=== PATIENT | male | born 1995 | race Caucasian/White ===

== ENCOUNTER 2021-01-31 21:25 | Emergency (ER) | payer OTHER, SELFPAY ==
[2021-01-31 21:27] VITALS: BP 135/79; PULSE 85; RESP 16; TEMP 36.6; O2SAT 97; BMI 29.9
--- NOTE | 2021-01-31 21:52 | XR_ITS ---
PROCEDURE INFORMATION: Exam: XR Left Hand Exam date and time: 01/31/2021 9:52 PM Age: 25 years old Clinical indication: Injury or trauma; Other: Nail gun injury; Puncture; Ring finger; Patient HX: Nail from nail gun went thru distal part of 4th finger on left hand; Additional info: Nail went through finger TECHNIQUE: Imaging protocol: XR Left hand. Views: 3 or more views. COMPARISON: No relevant prior studies available. FINDINGS: Bones/joints: Small bone fragments are seen dorsal to the distal phalanx of the 4th digit. Nondisplaced fracture noted as well. Soft tissues: Soft tissue swelling noted in the 4th digit. IMPRESSION: Minimally displaced and comminuted fracture of the distal phalanx of the 4th digit
--- NOTE | 2021-01-31 22:36 | HMH.EDUPEXT ---
ED Disposition Clinical Impression: Puncture wound Finger fracture, left Qualifiers: Encounter type: initial encounter Finger: ring finger Fracture type: closed Phalanx: distal Fracture alignment: nondisplaced Qualified Code(s): S62.665A - Nondisplaced fracture of distal phalanx of left ring finger, initial encounter for closed fracture Disposition: Home, Self-Care Condition on Discharge: Good Instructions: DI for Wound Infection Additional Instructions: call ortho in am Prescriptions: cephALEXin [cephALEXin 500mg capsule*] 500 mg PO TID #30 cap Transmission Status: Pending to [id number] clindamycin HCL [Clindamycin HCl] 300 mg PO TID #30 cap Transmission Status: Pending to [facility] Referrals: ProviderJas MD [Primary Care Provider] - Zachary Borrego MD [Staff Physician] - - Critical Care Critical Care Time: No Attestation: On 01/31/21, the high probability of a clinically significant, sudden or life threatening deterioration of the following system(s) required my full and direct attention, intervention and personal management. The time I documented below is in addition to time spent performing reported procedures but includes the following listed in this critical care notation. Medical Decision Making - Medical Records Medical records reviewed: Yes: I reviewed the patient's medical records. - Mukund Inquiry Pt receiving controlled substance: No Vital Signs: 01/31/21 21:27 Temperature 97.9 F Temperature Source Oral Pulse Rate [Right Radial] 85 Respiratory Rate 16 Blood Pressure [Right Arm] 135/79 Blood Pressure Mean [Right Arm] 97 Blood Pressure Source [Right Arm] Automatic Cuff Blood Pressure Position [Right Arm] Sitting 02 Sat by Pulse Oximetry 97 Oxygen Delivery Method Room Air Orders (Tests/Meds): ED MEDICATIONS Discontinued Medications Generic Name Dose Route Start Last Admin Trade Name Freq PRN Reason Stop Dose Admin Tetanus/Diphtheria Toxoids 0.5 ml 01/31/21 21:52 01/31/21 22:18 Tetanus-Diphth Toxoid, Adult 0.5ml Syr IM 01/31/21 21:53 0.5 ml .ONCE ONE Administration - Radiology Data #1 Image(s): Hand Image Reviewed: Yes I have reviewed radiologist's interpretation Preliminary Findings: Abnormal (see report ) - Physician Consults Physician Consulted: charity Reason -: Pt condition Medical Decision Narrative: workman comp injury with nail gun injury at distal lt 4th finger - sl flexion deformity- has fx - will see ortho for follow up - workman comp form completed Upper Extremity HPI - General Chief Complaint: Wound/Laceration Stated Complaint: AO nailgun shot nail into left ring finger Time Seen by Provider: 01/31/21 22:37 Mode of Arrival: Ambulatory Source of Information: Patient, Medical Record Limitations: No Limitations Description of Symptoms (Recalled from ER Triage Doc. by RN): Pt reports shooting a nail through his finger with a nail gun at work arround 11am. Pt is not UTD on tetnus. Injury is to left ring finger. - History of Present Illness HPI narrative: nail gun injury to lt 4th/ring finger today at work about noon- now swelling and pain complaint: injury to: left, finger Onset (ago): hour(s) Other Extremity Injury: Left: fingers Other injuries: none Handedness: right Place: work Severity: moderate Context: other (nail gun injury) Associated symptoms: denies other symptoms - Related Data Previous Rx's Medication Instructions Recorded cephALEXin [cephALEXin 500mg 500 mg PO TID #30 cap 01/31/21 capsule*] clindamycin HCL [Clindamycin HCl] 300 mg PO TID #30 cap 01/31/21 Allergies Allergy/AdvReac Type Severity Reaction Status Date / Time amoxicillin Allergy Verified 01/31/21 21:51 [facility] History - Hepatitis A Screen Drug use history?: No High risk sexual behaviors?: No History of sexually transmitted infection?: No Currently employed?: No Childcare worker?: No Do you h
[2021-01-31 23:34] VITALS: BP 125/78; PULSE 80; RESP 16; TEMP 36.8; O2SAT 98
== END 2021-01-31 23:35 | disposition home or self-care (01) ==
PROVIDERS: Emergency Provider Emergency Medicine
DX: S62.665A Nondisplaced fracture of distal phalanx of left ring finger, initial encounter for closed fracture (principal); S61.235A Puncture wound without foreign body of left ring finger without damage to nail, initial encounter; W22.8XXA Striking against or struck by other objects, initial encounter; Y92.69 Other specified industrial and construction area as the place of occurrence of the external cause; Y99.0 Civilian activity done for income or pay; Z23 Encounter for immunization
CPT/HCPCS: 73130; 90471; 90714; 96372; 99282

== ENCOUNTER 2022-06-09 17:50 | Emergency (ER) | payer OTHER, SELFPAY ==
[2022-06-09 17:50] VITALS: BP 131/80; PULSE 83; RESP 18; TEMP 36.6; O2SAT 93; BMI 32.5
[2022-06-09 18:08] VITALS: BMI 32.5
--- NOTE | 2022-06-09 18:14 | HMH.EDNVD ---
Discharge Plan Disposition Patient Disposition: Home, Self-Care Condition: Fair Prescriptions Prescriptions: New ondansetron 8 mg Tablet,Disintegrating 8 mg PO QID PRN (Reason: Nausea And Vomiting) Qty: 16 0RF No Action cephalexin 500 MG capsule 500 mg PO TID Qty: 30 0RF clindamycin HCl 300 MG capsule 300 mg PO TID Qty: 30 0RF Referrals Follow up/Referrals: Provider,Referral, [Primary Care Provider] - See instructions Activity Restrictions/Add. Instructions Additional Instructions/Restrictions: Take only clear liquids by mouth for the next day or 2. After that you may start slowly increasing/advancing your diet. Follow-up with your primary care doctor in about 2 to 3 days if you do not feel any better. Return to the emergency department immediately if you feel worse in any way. Clinical Impressions Clinical Impression: Vomiting Qualifiers: Vomiting type: unspecified Nausea presence: with nausea Qualified Code(s): R11.2 - Nausea with vomiting, unspecified Instructions Patient Instructions: Nausea and Vomiting-Adult Discharge ED Provider: Shadia Goldman Nausea/Vomiting/Diarrhea [facility] General Chief complaint: Nausea/Vomiting/Diarrhea Stated complaint: vomiting Time Seen by Provider: 06/09/22 18:14 Mode of Arrival: Ambulatory Source of Information: Patient Limitations: No Limitations Description of Symptoms (Recalled from ER Triage Doc. by RN): Patient ambulated into the ED with complaints of vomiting that has persisted for the past 4 days. Patieent states he has not had any episodes of diarrhea and no fever during this 4 day time periods. Patient also has a cough that just started today. Patient also states he has not been able to eat anything during this 4 day period. History of Present Illness HPI Narrative: The patient presents to the emergency department complaining of vomiting for the last 4 days. He states that a few days ago his son was sick with the same symptoms. His son has recovered now. He denies any diarrhea. He denies any abdominal pain. He does take Suboxone. He stopped smoking marijuana several days ago. He denies any other drug use. He denies any hematemesis. MD complaint: nausea and vomiting Associated Abdominal Pain: No Related Data Previous Rx's Medication Instructions Recorded cephalexin 500 mg capsule 500 mg PO TID #30 caps 01/31/21 clindamycin HCl 300 mg capsule 300 mg PO TID #30 caps 01/31/21 ondansetron 8 mg disintegrating 8 mg PO QID PRN Nausea And 06/09/22 tablet Vomiting #16 tabs Allergies Allergy/AdvReac Type Severity Reaction Status Date / Time amoxicillin Allergy Verified 01/31/21 21:51 [facility] Disclaimer: The information contained in this section may have been updated after the patient was seen, as this information can be updated by other users. Social History Smoking Status: Current every day smoker alcohol intake: current current occupational status: employed Travel in the last 8 weeks: None ROS Obtained: Yes All systems reviewed & no additional complaints except as documented Physical Exam General General appearance: alert Head Head exam: atraumatic Eye Eye exam: Present normal appearance and EOMI; Absent scleral icterus or jaundice ENT ENT exam: Present normal exam Neck Neck exam: Present normal inspection and full ROM; Absent tenderness or meningismus Chest Chest inspection: Present normal inspection and symmetric chest wall rise; Absent tenderness Respiratory Respiratory exam: Present normal lung sounds bilaterally; Absent respiratory distress or accessory muscle use Cardiovascular Cardiovascular exam: Present regular rate, normal rhythm and normal heart sounds Abdominal Exam Abdominal exam: Present soft and normal bowel sounds; Absent distention, tenderness, heel tap sign, Higgins's sign, Rovsing's sign, tenderness at McBurney's Point or mass Extremities Exam Extremities exam: Present normal inspection and ful
[2022-06-09 18:20] LABS: Chloride 98 mmol/L (98-107); Potassium 3.7 mmoL/L (3.5-5.1); Sodium 138 mmol/L (136-145)
[2022-06-09 18:22] LABS: Alanine Aminotransferase 33 U/L (12-78); Alkaline Phosphatase 71 U/L (38-126); Aspartate Amino Transferase 31 U/L (17-59); Bilirubin,Total 0.6 mg/dl (0.2-1.3); Blood Urea Nitrogen 19 mg/dl (9-20); Creatinine Clearance Estimated 256 mL/min (50-200); Estimated Glomerular Filt Rate 159 ml/min (>60); GFR (African American) 193 ML/MIN (>60)
[2022-06-09 18:23] LABS: Albumin Level 4.7 g/dl (3.5-5.0); Albumin/Globulin Ratio 1.4 (1.1-1.8); Anion Gap 13.7 mEq/L (5-15); Carbon Dioxide 30 mmol/L (22.0-30.0); Globulin 3.3 g/dL (1.3-3.2); Glucose 113 mg/dl (74-100); Lipase 32 U/L (23-300)
[2022-06-09 18:24] LABS: Basophils # 0.1 K/mm3 (0-0.2); Basophils % 0.3 % (0.1-2.0); Eosinophils # 0.1 K/mm3 (0.0-0.4); Eosinophils % 0.9 % (0.1-12.0); Hematocrit 43.5 % (42.0-52.0); Hemoglobin 14.5 g/dL (14.1-18.0); Lymphocytes # 1.5 K/mm3 (0.7-4.5); Lymphocytes % 9.7 % (10-50); Mean Corpuscular HGB Conc 33.4 g/dL (31.8-35.4); Mean Corpuscular Hemoglobin 26.3 pg (27.0-31.2); Mean Corpuscular Volume 78.9 fl (80-94); Mean Platelet Volume 7.3 fl (7.4-10.4); Monocytes # 0.7 K/mm3 (0.1-1.0); Monocytes % 4.7 % (1.7-9.3); Neutrophils # 13.4 K/mm3 (1.8-7.8); Neutrophils % 84.4 % (37.0-80.0); Platelet Count 316 K/mm3 (142-424); Red Blood Count 5.51 M/mm3 (4.60-6.20); Red Cell Distribution Width 13.2 % (11.5-17.5); White Blood Count 15.9 K/mm3 (4.8-10.8)
[2022-06-09 18:30] LABS: MANUAL DIFFERENTIAL MANUAL DIFFERENTIAL (MANUAL DIFF)
[2022-06-09 18:41] LABS: Hypochromasia 1+; Lymphocytes % 12 % (10-50); Microcytosis 1+; Monocytes % 2 % (2-9); Neutrophils % 86 % (42-76); Platelet Estimate Normal; Total Cells Counted 100
[2022-06-09 19:30] VITALS: BP 130/82; PULSE 84; RESP 20; TEMP 37; O2SAT 98
== END 2022-06-09 19:31 | disposition home or self-care (01) ==
PROVIDERS: Emergency Provider Emergency Medicine
DX: R11.2 Nausea with vomiting, unspecified (principal)
CPT/HCPCS: 80053; 83690; 85007; 85025; 96360; 96374; 99284; J2405

== ENCOUNTER 2023-09-24 11:12 | Emergency (ER) | payer OTHER, SELFPAY ==
[2023-09-24 11:15] VITALS: BP 143/82; PULSE 75; RESP 20; TEMP 36.6; O2SAT 95; BMI 32.5
--- NOTE | 2023-09-24 11:50 | EXP.UTC ---
Discharge Plan Disposition Patient Disposition: Home, Self-Care Condition: Good Prescriptions Prescriptions: New ciprofloxacin-dexamethasone 0.3-0.1 % Drops,Suspension 2 drp Ear-Right BID 7 Days Qty: 1 0RF Referrals Follow up/Referrals: Provider,Referral, [Primary Care Provider] - See instructions Activity Restrictions/Add. Instructions Additional Instructions/Restrictions: Use the ear drops as directed. Follow up with your regular doctor. GO TO THE ER FOR ANY WORSENING SYMPTOMS OR CONCERNS Clinical Impressions Clinical Impression: Acute foreign body of right ear Instructions Patient Instructions: How to Instill Ear Drops Discharge ED Provider: Jamie Wilson [facility] [place] HPI General Stated complaint: ear bud in R ear Mode of Arrival: Ambulatory Source of Information: Patient Limitations: No Limitations Time Seen by Provider: 09/24/23 11:47 Description of Symptoms (Recalled from Triage Doc. by RN): PATIENT STATES HE HAS THE RUBBER END OF AN EARBUD STUCK IN HIS RIGHT EAR HEENT Symptoms (Recalled from RN notes): Yes Resp Symptoms (Recalled from RN notes): No Skin Symptoms (Recalled from RN notes): No MS Symptoms (Recalled from RN notes): No Functional Status (Recalled from RN notes): WNL History of Present Illness Provider Complaint: He states that for the past 2 days he has had the tip of an ear bud stuck in his right ear. Related Data Previous Rx's Medication Instructions Recorded ciprofloxacin 0.3 %-dexamethasone 2 drp Ear-Right BID 7 days #1 ea 09/24/23 0.1 % ear drops,suspension Allergies Allergy/AdvReac Type Severity Reaction Status Date / Time amoxicillin Allergy Verified 01/31/21 21:51 Worker's Comp Is this a Worker's Comp case?: No [facility] Disclaimer: The information contained in this section may have been updated after the patient was seen, as this information can be updated by other users. Social History (Updated 06/09/22 @ 19:00 by Shadia Goldman MD) Smoking Status: Current every day smoker alcohol intake: current alcohol intake frequency: a few times a month current occupational status: employed Travel in the last 8 weeks: None ROS Obtained: Yes All systems reviewed & no additional complaints except as documented Constitutional Constitutional: Denies chills and Denies fever(s) Eyes Eyes: Denies eye discharge ENT Ears, Nose, Mouth, and Throat: Reports as per HPI, Denies dizziness, Reports otalgia and Denies sore throat Cardiovascular Cardiovascular: Denies chest pain Respiratory Respiratory: Denies shortness of breath, Denies chest congestion, Denies cough, Denies stridor and Denies wheezing Gastrointestinal Gastrointestingal: Denies nausea or vomiting Musculoskeletal Musculoskeletal: Reports system reviewed and no additional complaints, except as documented and Denies arthralgias Integumentary/Breasts Skin/Breast: Denies rash Neurologic Neurologic: Denies dizziness and Denies paresthesias Allergic/Immunologic Allergic/Immunologic: Denies wheezing Physical Exam General General appearance: alert and in no apparent distress Head Head exam: atraumatic, normocephalic and normal inspection Eye Eye exam: Present normal appearance, PERRL and EOMI ENT ENT exam: Present normal oropharynx, mucous membranes moist and normal external ear exam Expanded ENT Exam TM/Canal exam: Right TM: foreign body Nose exam: Absent sinus tenderness Mouth exam: Present normal external inspection; Absent drooling Teeth exam: Present normal inspection Throat exam: Present normal inspection Neck Neck exam: Present normal inspection, full ROM and trachea midline; Absent meningismus or lymphadenopathy Chest Chest inspection: Present normal inspection and symmetric chest wall rise; Absent tenderness Respiratory Respiratory exam: Present normal lung sounds bilaterally; Absent respiratory distress Cardiovascular Cardiovascular exam: Present regular rate and normal rhythm; Absent JVD Abdominal Exam Abdominal exam: Present soft and normal bowel sounds; Absent distention, tenderness or guarding Extremities Exam Extremities exam: Present normal inspection, full ROM and normal capillary refill; Absent calf tenderness Back Exam Back exam: Present normal inspection; Absent tenderness Neurological Exam Neurological exam: Present alert and oriented X3 Psychiatric Psychiatric exam: Present normal affect and normal mood Skin Skin exam: Present warm, dry, intact and normal color Lymphatic Lymphatic Findings: no adenopathy Medical Decision Making Medical Records Medical records reviewed: No I reviewed the patient's medical records. Mukund Inquiry Pt receiving controlled substance: No Vital Signs: 09/24/23 11:15 Temperature 97.9 F Temperature Source Oral Pulse Rate [Left Brachial] 75 Respiratory Rate 20 Blood Pressure [Left Arm] 143/82 H Blood Pressure Mean [Left Arm] 102 Blood Pressure Source [Left Arm] Automatic Cuff Blood Pressure Position [Left Arm] Sitting 02 Sat by Pulse Oximetry 95 Oxygen Delivery Method Room Air Procedures Risk/Benefits of Procedure(s) Were Explained: Yes FB Removal Ear Location: ear canal (R) Foreign Body Suspected: other (ear bud tip) TM intact pre-procedure: unable to visualize Foreign Body Removed: yes Foreign Body Removal Technique: instrumentation Tympanic Membrane Intact Post Procedure: Yes Patient Tolerated Procedure: well Complications: none
[2023-09-24 11:53] VITALS: BP 143/82; PULSE 75; RESP 20; TEMP 36.6; O2SAT 95
== END 2023-09-24 11:55 | disposition home or self-care (01) ==
PROVIDERS: Emergency Provider Nurse Practitioner Family
DX: T16.1XXA Foreign body in right ear, initial encounter (principal); W44.8XXA Other foreign body entering into or through a natural orifice, initial encounter
CPT/HCPCS: 99204; 99212; G0463